=== PATIENT | male | born 1965 | race Caucasian/White ===

== ENCOUNTER 2018-07-29 06:20 | Day surgery (SDC) | payer OTHER ==
[~2018-07-29] VITALS: Ht 175.3 cm; Wt 83.6 kg
[2018-07-29] MEDS ORDERED: SODIUM CHLORIDE 0.9% 1,000 ML IV SCH (06:39)
[2018-07-29 06:51] VITALS: BP 122/78
[2018-07-29] MEDS ORDERED: CEFAZOLIN PMX 1GM/50ML 50 ML IVPB ONE (07:00)
[2018-07-29] MEDS ORDERED: PLEASE ENTER ALLERGIES MC SCH (07:00)
[2018-07-29] MEDS ORDERED: FENTANYL PF 100 MCG/2ML ONE (07:51)
[2018-07-29] MEDS ORDERED: LIDOCAINE/PF 1%, 30ML ONE (07:51)
[2018-07-29] MEDS ORDERED: CEFAZOLIN 1,000 MG ONE (07:51)
[2018-07-29] MEDS ORDERED: CEFAZOLIN PMX 1GM/50ML 50 ML ONE (07:51)
[2018-07-29] MEDS ORDERED: MIDAZOLAM 1 MG/ML, 5ML ONE (07:51)
[2018-07-29] MEDS ORDERED: HOLD MEDICATION MC PRN (09:30)
[2018-07-29] MEDS ORDERED: ACETAMINOPHEN 325 MG TABLET PO PRN ×2 (09:30)
[2018-07-29] MEDS ORDERED: CEPH-368 PO (09:36)
[2018-07-29] MEDS ORDERED: ACETAMINOPHEN 325 MG TABLET ONE (10:02)
[2018-07-29] MEDS ORDERED: SODIUM CHLORIDE FLUSH 10ML SYR IVF SCH (21:00)
== END 2018-07-29 11:22 | disposition home or self-care (01) ==
LOC: CACL 06:20
PROVIDERS: ATTEND Internal Medicine Cardiovascular Disease
DX: Z45.010 Encounter for checking and testing of cardiac pacemaker pulse generator [battery] (principal); Z95.0 Presence of cardiac pacemaker
CPT/HCPCS: 33228; 71046; 99156; 99157; C1785; J0690; J2250; J3010; J3490